=== PATIENT | female | born 1955 | race African-American/Black ===

== ENCOUNTER 2020-11-18 09:56 | Inpatient (IN) ==
[2020-11-18] MEDS ORDERED: ALBUTEROL 2.5 MG/3 ML NEB RESP TX STA (10:42)
[2020-11-18 11:09] LABS: ABG Base Excess 10.7 MMOL/L (-2.5-2.5); ABG HCO3 39.7 MMOL/L (20-26); ABG Oxygen Saturation 99.1 % (95-100); ABG PH 7.338 (7.35-7.45); ABG PO2 174.5 MM HG (80-95); ABG TCO2 42.1 MMOL/L (23-27)
[2020-11-18 11:16] LABS: ABG PCO2 75.7 MM HG (35-48)
[2020-11-18] MEDS ORDERED: PIPERACILLIN/TAZOBACTAM 3,375 MG in SODIUM CHLORIDE 0.9% 100 ML IV STA ×2 (11:24→11:27)
[2020-11-18 11:30] LABS: Basophils % 0.1 % (0.0-0.8); Hematocrit 42.6 VOL% (35.7-47.0); Hemoglobin 13.1 GM/DL (12.0-16.0); Immature Granulocytes % 0.6 %; Immature Granulocytes Absolute 0.08 #; Lymphocytes # 1.1 10*3/uL (1.4-4.0); Lymphocytes % 8.5 % (21.3-54.2); Mean Corpuscular HGB Conc 30.8 GM/DL (32-36); Mean Corpuscular Volume 75.9 FL (87-102); Mean Platelet Volume 10.6 FL (9.6-12.0); Monocytes % 1.9 % (1.7-12.7); Neutrophils % 88.9 % (38.7-73.9); Platelet Count 292 T/CUMM (130-400); Red Blood Count 5.61 MC/CUMM (3.8-5.5); Red Cell Distribution Width 17.3 % (9.3-17.3); White Blood Count 12.4 T/CUMM (4-12)
[2020-11-18 11:37] LABS: PT Patient Result 11.2 SECS (10.5-12.0)
[2020-11-18] MEDS ORDERED: ACETAMINOPHEN 325 MG TABLET PO PRN (11:47)
[2020-11-18] MEDS ORDERED: ONDANSETRON 4 MG/2 ML VIAL IV PRN (11:47)
[2020-11-18] MEDS ORDERED: GLUCAGON 1 MG VIAL IM PRN (11:47)
[2020-11-18] MEDS ORDERED: DEXTROSE 50% 25 GM/50 ML VIAL IV PRN (11:47)
[2020-11-18] MEDS ORDERED: ALBUTEROL 2.5 MG/3 ML NEB RESP TX PRN (11:47)
[2020-11-18 11:52] LABS: Albumin 3.2 G/DL (3.4-5.0); Bilirubin,Total 0.4 MG/DL (0.20-1.00); Calcium 9.1 MG/DL (8.5-10.1); Potassium 3.6 MMOL/L (3.5-5.1); Total Protein 8.2 G/DL (6.4-8.2)
[2020-11-18 12:07] LABS: Anisocytosis 1+; Platelet Estimate Normal
[2020-11-18 12:08] LABS: Macrocytosis 1+
[2020-11-18] MEDS: ENOXAPARIN 40 MG/0.4 ML SYRINGE SUBCUT SCH (12:40)
[2020-11-18] MEDS: LACTATED RINGERS 1,000 ML IV SCH (12:40)
[2020-11-18] MEDS: methylPREDNISolone SOD SUC 125 MG/2 ML VIAL IV SCH ×2 (12:42→20:22)
[2020-11-18] MEDS: PANTOPRAZOLE 40 MG VIAL IV SCH (12:44)
[2020-11-18] MEDS: MEROPENEM 500 MG in SODIUM CHLORIDE 0.9% 100 ML IV SCH ×2 (12:49→18:40)
[2020-11-18] MEDS: ALBUTEROL/IPRATROPIUM 3 ML NEB RESP TX SCH ×3 (14:57→23:25)
[2020-11-18] MEDS: INSULIN LISPRO 100 UNIT/ML SUBCUT SCH ×2 (17:19→22:37)
[2020-11-18] MEDS ORDERED: FUROSEMIDE 40 MG/4 ML VIAL IV ONE (20:55)
[2020-11-18] MEDS: ATORVASTATIN 10 MG TABLET PO SCH (22:36)
[2020-11-18] MEDS: BIMATOPROST 0.01% OPH SOLN 2.5 ML BOTTLE BOTH EYES SCH (22:37)
[2020-11-19] MEDS: MEROPENEM 500 MG in SODIUM CHLORIDE 0.9% 100 ML IV SCH ×4 (00:16→17:33)
[2020-11-19] MEDS: LACTATED RINGERS 1,000 ML IV SCH (02:40)
[2020-11-19] MEDS: ALBUTEROL/IPRATROPIUM 3 ML NEB RESP TX SCH ×6 (03:15→23:30)
[2020-11-19 03:18] LABS: Allen Test Positive; Pt O2 Delivery Device BIPAP
[2020-11-19 03:23] LABS: ABG HCO3 34.7 MMOL/L (20-26); ABG Oxygen Saturation 94.3 % (95-100); ABG PH 7.441 (7.35-7.45); ABG PO2 73.2 MM HG (80-95); ABG TCO2 32.7 MMOL/L (23-27)
[2020-11-19] MEDS: methylPREDNISolone SOD SUC 125 MG/2 ML VIAL IV SCH ×3 (03:53→21:34)
[2020-11-19 04:54] LABS: ABG Base Excess 14.6 MMOL/L (-2.5-2.5); ABG HCO3 38.5 MMOL/L (20-26); ABG Oxygen Saturation 95.4 % (95-100); ABG PCO2 61.8 MM HG (35-48); ABG PH 7.443 (7.35-7.45); ABG PO2 78.6 MM HG (80-95); ABG TCO2 36.6 MMOL/L (23-27)
[2020-11-19 05:39] LABS: Basophils % 0.1 % (0.0-0.8); Hemoglobin 13.1 GM/DL (12.0-16.0); Immature Granulocytes % 0.5 %; Immature Granulocytes Absolute 0.07 #; Lymphocytes # 1.5 10*3/uL (1.4-4.0); Lymphocytes % 10.9 % (21.3-54.2); Mean Corpuscular HGB Conc 31.2 GM/DL (32-36); Mean Corpuscular Volume 76.5 FL (87-102); Mean Platelet Volume 11.3 FL (9.6-12.0); Monocytes % 5.5 % (1.7-12.7); Platelet Count 315 T/CUMM (130-400); Red Blood Count 5.49 MC/CUMM (3.8-5.5); White Blood Count 13.7 T/CUMM (4-12)
[2020-11-19 06:32] LABS: Calcium 8.7 MG/DL (8.5-10.1); Potassium 3.7 MMOL/L (3.5-5.1)
[2020-11-19] MEDS: INSULIN LISPRO 100 UNIT/ML SUBCUT SCH ×4 (07:32→21:34)
[2020-11-19] MEDS: ASPIRIN EC 81 MG TABLET PO SCH (08:21)
[2020-11-19] MEDS: ESCITALOPRAM 10 MG TABLET PO SCH (08:21)
[2020-11-19] MEDS: ALPRAZolam 0.25 MG TABLET PO SCH ×2 (11:16→21:34)
[2020-11-19] MEDS: ENOXAPARIN 40 MG/0.4 ML SYRINGE SUBCUT SCH (11:17)
[2020-11-19] MEDS: PANTOPRAZOLE 40 MG VIAL IV SCH (11:17)
[2020-11-19 12:38] LABS: Bacteria,Urine Occasional /HPF (Few); Bilirubin,Urine Negative (Negative); Blood, Urine Moderate mg/dL (Negative); Glucose,Urine (UA) Negative (Negative); Ketones,Urine 5 mg/dL (Negative); Nitrite,Urine Negative (Negative); Protein,Urine Negative; RBC,Urine 5 /HPF (0-4); Urine Appearance CLEAR (Clear); Urine Color Yellow (Yellow); Urine Urobilinogen < 2.0 EU/DL (0.2-1.0)
[2020-11-19] MEDS: ATORVASTATIN 10 MG TABLET PO SCH (21:34)
[2020-11-19] MEDS: BIMATOPROST 0.01% OPH SOLN 2.5 ML BOTTLE BOTH EYES SCH (21:35)
[2020-11-20] MEDS: MEROPENEM 500 MG in SODIUM CHLORIDE 0.9% 100 ML IV SCH ×5 (00:03→23:55)
[2020-11-20] MEDS: ALBUTEROL/IPRATROPIUM 3 ML NEB RESP TX SCH ×6 (02:10→23:38)
[2020-11-20 04:36] LABS: Basophils % 0.1 % (0.0-0.8); Hematocrit 40.5 VOL% (35.7-47.0); Hemoglobin 12.6 GM/DL (12.0-16.0); Immature Granulocytes % 0.4 %; Immature Granulocytes Absolute 0.06 #; Lymphocytes # 0.9 10*3/uL (1.4-4.0); Lymphocytes % 6.3 % (21.3-54.2); Mean Corpuscular HGB Conc 31.1 GM/DL (32-36); Mean Corpuscular Volume 76.3 FL (87-102); Mean Platelet Volume 11.8 FL (9.6-12.0); Monocytes % 5.5 % (1.7-12.7); Neutrophils % 87.7 % (38.7-73.9); Platelet Count 318 T/CUMM (130-400); Red Blood Count 5.31 MC/CUMM (3.8-5.5); Red Cell Distribution Width 17.2 % (9.3-17.3); White Blood Count 14.5 T/CUMM (4-12)
[2020-11-20] MEDS: methylPREDNISolone SOD SUC 125 MG/2 ML VIAL IV SCH (04:55)
[2020-11-20 05:16] LABS: Calcium 9.1 MG/DL (8.5-10.1); Osmolality,Calculated 271.4 MOS/KG (273-304); Potassium 3.9 MMOL/L (3.5-5.1)
[2020-11-20] MEDS: INSULIN LISPRO 100 UNIT/ML SUBCUT SCH ×4 (08:00→20:53)
[2020-11-20] MEDS: ASPIRIN EC 81 MG TABLET PO SCH (08:32)
[2020-11-20] MEDS: ALPRAZolam 0.25 MG TABLET PO SCH ×2 (08:33→20:48)
[2020-11-20] MEDS: ESCITALOPRAM 10 MG TABLET PO SCH (08:33)
[2020-11-20] MEDS: PANTOPRAZOLE 40 MG TABLET PO SCH (08:48)
[2020-11-20] MEDS: methylPREDNISolone SOD SUC 40 MG/1 ML VIAL IV SCH ×2 (08:48→20:49)
[2020-11-20] MEDS ORDERED: methylPREDNISolone SOD SUC 125 MG/2 ML VIAL IV SCH (09:00)
[2020-11-20] MEDS: MAGNESIUM OXIDE 400 MG TABLET PO SCH (09:19)
[2020-11-20] MEDS: CHOLECALCIFEROL 400 UNIT TABLET PO SCH (09:19)
[2020-11-20] MEDS: CETIRIZINE 10 MG TABLET PO SCH (09:19)
[2020-11-20] MEDS: ENOXAPARIN 40 MG/0.4 ML SYRINGE SUBCUT SCH (12:47)
[2020-11-20] MEDS: ATORVASTATIN 10 MG TABLET PO SCH (20:48)
[2020-11-20] MEDS: BIMATOPROST 0.01% OPH SOLN 2.5 ML BOTTLE BOTH EYES SCH (20:52)
[2020-11-21] MEDS: ALBUTEROL/IPRATROPIUM 3 ML NEB RESP TX SCH ×3 (03:14→10:53)
[2020-11-21 05:37] LABS: Basophils % 0.1 % (0.0-0.8); Hematocrit 39.9 VOL% (35.7-47.0); Hemoglobin 12.3 GM/DL (12.0-16.0); Immature Granulocytes % 0.9 %; Immature Granulocytes Absolute 0.12 #; Lymphocytes # 0.7 10*3/uL (1.4-4.0); Lymphocytes % 5.2 % (21.3-54.2); Mean Corpuscular HGB Conc 30.8 GM/DL (32-36); Monocytes % 4.6 % (1.7-12.7); Neutrophils % 89.2 % (38.7-73.9); Platelet Count 344 T/CUMM (130-400); Red Blood Count 5.18 MC/CUMM (3.8-5.5); Red Cell Distribution Width 17.2 % (9.3-17.3); White Blood Count 14.1 T/CUMM (4-12)
[2020-11-21] MEDS: MEROPENEM 500 MG in SODIUM CHLORIDE 0.9% 100 ML IV SCH ×2 (05:49→11:56)
[2020-11-21 06:11] LABS: Calcium 8.8 MG/DL (8.5-10.1); Osmolality,Calculated 287.3 MOS/KG (273-304)
[2020-11-21] MEDS: INSULIN LISPRO 100 UNIT/ML SUBCUT SCH ×2 (08:37→12:02)
[2020-11-21] MEDS: PANTOPRAZOLE 40 MG TABLET PO SCH (09:53)
[2020-11-21] MEDS: CETIRIZINE 10 MG TABLET PO SCH (09:54)
[2020-11-21] MEDS: MAGNESIUM OXIDE 400 MG TABLET PO SCH (09:54)
[2020-11-21] MEDS: ALPRAZolam 0.25 MG TABLET PO SCH (09:54)
[2020-11-21] MEDS: methylPREDNISolone SOD SUC 40 MG/1 ML VIAL IV SCH (09:54)
[2020-11-21] MEDS: CHOLECALCIFEROL 400 UNIT TABLET PO SCH (09:54)
[2020-11-21] MEDS: ASPIRIN EC 81 MG TABLET PO SCH (09:54)
[2020-11-21] MEDS: ESCITALOPRAM 10 MG TABLET PO SCH (09:54)
[2020-11-21] MEDS: ENOXAPARIN 40 MG/0.4 ML SYRINGE SUBCUT SCH (11:56)
[2020-11-21 12:49] VITALS: BP 137/61
== END 2020-11-21 15:21 | disposition home health service (06) | DRG 190 ==
LOC: N.ED 09:56 → N.EDINP 11:47 → SUATTDRO 11:47 → N.ICU 18:07 → N.4E 11-20 11:29
PROVIDERS: ADMIT Internal Medicine; ATTEND Internal Medicine